=== PATIENT | female | born 2000 ===

== ENCOUNTER 2019-01-21 15:21 | Inpatient (IN) | payer OTHER ==
[~2019-01-21] VITALS: Ht 147.3 cm; Wt 55.3 kg
[2019-01-21] VITALS (32 sets, daily range): BP systolic 95–138; BP diastolic 51–91
--- NOTE | 2019-01-21 15:30 | NUR ---
Arrived to unit ambulates self with c/o SROM at 1450. Wt obtained and to room 318. Gowned and urine sample obtained. To bed and oriented to room, call light and surroundings. plan of care reviewed with pt and pts mother at bedside. monitors on.
[2019-01-21] MEDS ORDERED: PREN-37 PO (15:40)
[2019-01-21] MEDS ORDERED: FERR-84 PO (15:40)
--- NOTE | 2019-01-21 16:02 | History & Physical-OB ---
OB - Chief Complaint & HPI Date/Time Date of Admission: Date of Admission: Date seen by a Provider: Jan 21, 2019 Time Seen by a Provider: 15:35 Chief Complaint/History OB-Reason for Admission/Chief: Rupture of Membranes Hx : 1 Hx Para: 0 Expected Date of Delivery: Jan 27, 2019 Gestational Age in Weeks: 39 Gestational Age in Days: 1 Admission Nurse Assessment Rev: Yes Allergies and Home Medications Allergies Coded Allergies: No Known Drug Allergies (Unverified , 01/21/19) Home Medications Ferrous Sulfate 325 Mg Tablet, 325 MG PO DAILY, (Reported) Vit/Iron Fumarate/FA 1 Each Tablet, 1 EACH PO DAILY, (Reported) Patient Home Medication List Home Medication List Reviewed: Yes OB - History Hx of Present Care: Yes Ultrasounds: Normal mid trimester US Obstetrical Complications: None Medical Complications: None Obstetrical History Hx : 1 Patient Past Medical History n/a Social History/Family History Recent Infectious Disease Expo: No OB - Admission Exam Physical Exam Vitals: Vital Signs 01/21/19 15:45 Pulse 90 Resp 18 B/P (MAP) 120/67 (84) O2 Delivery Room Air HEENT: NCAT Heart: Rhythm Normal Lungs: Clear Abdomen: Gravid Extremities: Normal Reflexes: Normal Cervical Dilatation: 3cm Effacement: 75% Station: -1 Membranes: Ruptured Amniotic Fluid: Clear Heart Rate: 130's Accelerations: Accelerations Present Decelerations: No Decelerations Short Term Variability: Present Asbestos Coverer Variability: Average (6-25) Contractions on Admission: 6-10 Minutes Apart OB - Assessment/Plan/Diagnosis Assessment Assessment: rupture of membranes Admission Dx 18 yo @ 39 weeks SROM Admission Status: Inpatient Order (span 2 midnights) Reason for Inpatient Admission: ROM at term, active labor Plan Plan: Expectant Management HECTOR ACEVEDO DO Jan 21, 2019 16:02
[2019-01-21] MEDS: D5 LR IV SOLUTION 1,000 ML IV SCH (16:33)
[2019-01-21 16:39] LABS: HEMATOCRIT 32 % (35-52); HEMOGLOBIN 10.4 G/DL (11.5-16.0); WHITE BLOOD COUNT 11.8 10^3/uL (4.3-11.0)
[2019-01-21 16:40] LABS: BASOPHILS % (AUTO) 0 % (0-10); EOSINOPHILS % (AUTO) 0 % (0-10); LYMPHOCYTES # (AUTO) 1.8 X 10^3 (1.0-4.0); LYMPHOCYTES % (AUTO) 16 % (12-44); MEAN CORPUSCULAR HEMOGLOBIN 20 PG (25-34); MEAN CORPUSCULAR HGB CONC 33 G/DL (32-36); MEAN CORPUSCULAR VOLUME 61 FL (80-99); MONOCYTES # (AUTO) 0.7 X 10^3 (0.0-1.0); MONOCYTES % (AUTO) 6 % (0-12); NEUTROPHILS # (AUTO) 9.3 X 10^3 (1.8-7.8); NEUTROPHILS % (AUTO) 79 % (42-75); PLATELET COUNT 191 10^3/uL (130-400); RED CELL DISTRIBUTION WIDTH 16.7 % (10.0-14.5)
[2019-01-21] MEDS ORDERED: OXYTOCIN/NORMAL SALINE 500 ML IV SCH (18:21)
[2019-01-21] MEDS ORDERED: fentaNYL INJECTION 100 MCG/2 ML AMP ONE (20:06)
[2019-01-21] MEDS ORDERED: SUFENTA 0.6MCG/ML BUPIVA 0.125 100 ML ONE (20:08)
--- NOTE | 2019-01-21 20:32 | NUR ---
Shelbi Thomas, TABLET MACHINE OPERATOR and Student here for epidural placement. Procedure explained, consent reviewed and signed by anesthesia. Questions answered to patient's satisfaction. Time out taken to verify correct patient/procedure. 2031 Patient up to side of bed, assisted into sitting position. Betadine prep done x3 and sterile drape applied. Local done, see anesthesia record. Test dose given, see anesthesia record for drug and dosage. Epidural catheter secured in place. Epidural placement complete. Assisted back into bed, monitors adjusted. Epidural dosed, see anesthesia record. Epidural of Sufenta/Bupvicaine @ cc/hr stated per pump. Patient tolerated procedure well. Addendum: 01/22/19 at 0426 by BOAZ LUND RN 12cc/hr
[2019-01-21] MEDS: EPIDURAL (SUFENTA 0.6MCG/ML BUPIVA 0.125%) 100 ML BAG EPI PRN (21:00)
[2019-01-21] MEDS ORDERED: LACTATED RINGERS 1,000 ML IV ONE (21:07)
[2019-01-21] MEDS ORDERED: ONDANSETRON 4 MG/2 ML (SDV) Z0FRAN IV PRN (21:15)
[2019-01-21] MEDS ORDERED: diphenhydrAMINE 50 MG/ML INJ (BENADRYL) IV PRN (21:15)
[2019-01-21] MEDS ORDERED: NALOXONE 0.4 MG/ML 1 ML (NARCAN) VIAL IV PRN ×2 (21:15)
[2019-01-21] MEDS ORDERED: METOCLOPRAMIDE INJ 10 MG/2 ML (REGLAN) IV PRN (21:15)
[2019-01-22] VITALS (37 sets, daily range): BP systolic 91–208; BP diastolic 48–81
[2019-01-22] MEDS: D5 LR IV SOLUTION 1,000 ML IV SCH (00:54)
[2019-01-22] MEDS: CATHETER FLUSH 10 ML SYR IV SCH ×2 (00:57→06:00)
[2019-01-22] MEDS ORDERED: LIDOCAINE/EPI 2% 1:200,00 (XYLOCAINE) 10 ML VIAL ONE ×2 (04:08→05:25)
[2019-01-22] MEDS: EPIDURAL (SUFENTA 0.6MCG/ML BUPIVA 0.125%) 100 ML BAG EPI PRN (04:55)
[2019-01-22] MEDS ORDERED: OXYTOCIN/NORMAL SALINE 500 ML IV SCH (06:18)
[2019-01-22] MEDS ORDERED: MEASLES,MUMPS,RUBELLA 1 EA INJ SQ ONE (06:30)
[2019-01-22] MEDS ORDERED: TETANUS,DIPTH,PERTUSS P/F (BOOSTRIX) 0.5 ML VIAL IM ONE (06:30)
[2019-01-22] MEDS ORDERED: BENZOCAINE/MENTHOL (DERMOPLAST) 56 ML CAN TP PRN (06:30)
[2019-01-22] MEDS ORDERED: DIBUCAINE (NUPERCAINAL) 1% OINT 30 GM TOP PRN (06:30)
[2019-01-22] MEDS ORDERED: WITCH HAZEL(TUCKS) 40 EA JAR TOP PRN (06:30)
--- NOTE | 2019-01-22 07:00 | OB Labor & Delivery Record ---
L&D History Date of Service Date of Service: Jan 22, 2019 History Expected Date of Delivery: Jan 27, 2019 Gestational Age in Weeks: 39 Hx : 1 Hx Para: 0 Complications Events: Routine care Operative Indications (Cesarea: N/A-Vaginal Delivery Intrapartal Events: None Other Complications Prolonged tachycardia and 1x maternal temp 100.4F L&D Stage1 Stage One Onset of Labor - Date: Jan 22, 2019 Monitors and Tracing Monitor Mode: External Heart Rate: 165 Monitor Accelerations: Uniform Station: -1 Crab Picker Variability: Average (6-10) Short Term Variability: Present Presentation: Vertex Vital Signs VS - Last 72 Hours, by Label 01/21/19 01/21/19 01/21/19 01/21/19 15:40 15:45 17:05 18:05 Pulse 90 90 77 75 Resp 16 18 16 16 B/P (MAP) 120/60 (80) 120/67 (84) 120/63 (82) 111/57 (75) O2 Delivery Room Air Room Air Room Air Room Air 01/21/19 01/21/19 01/21/19 01/21/19 18:30 18:45 19:00 19:20 Pulse 71 80 68 Resp 16 16 18 B/P (MAP) 111/64 (80) 110/56 (74) 118/66 (83) O2 Delivery Room Air Room Air Room Air Room Air 01/21/19 01/21/19 01/21/19 01/21/19 19:30 19:55 20:05 20:20 Temp 98.0 Pulse 68 75 81 86 Resp 18 18 18 18 B/P (MAP) 115/57 (76) 112/70 (84) 135/66 (89) 125/67 (86) O2 Delivery Room Air Room Air Room Air Room Air 01/21/19 01/21/19 01/21/19 01/21/19 20:35 20:40 20:45 20:55 Pulse 106 115 107 84 Resp 18 18 18 18 B/P (MAP) 130/74 (92) 134/81 (98) 127/84 (98) 118/65 (82) Pulse Ox 96 100 94 94 O2 Delivery Room Air Room Air Room Air Room Air 8/28/19 8/28/19 8/28/19 8/28/19 21:05 21:08 21:10 21:13 Pulse 77 76 71 78 Resp 16 16 16 16 B/P (MAP) 111/53 (72) 107/55 (72) 103/57 (72) 107/60 (76) Pulse Ox 99 99 98 98 O2 Delivery Room Air Room Air Room Air Room Air 01/21/19 01/21/19 01/21/19 01/21/19 21:16 21:19 21:22 21:27 Temp 97.8 Pulse 67 74 74 76 Resp 16 16 16 16 B/P (MAP) 96/51 (66) 101/51 (68) 95/54 (68) 103/56 (72) Pulse Ox 98 98 98 98 O2 Delivery Room Air Room Air Room Air Room Air 01/21/19 01/21/19 01/21/19 01/21/19 21:30 21:40 21:45 22:00 Pulse 76 70 72 62 Resp 16 16 16 16 B/P (MAP) 104/57 (73) 101/53 (69) 104/52 (69) 107/51 (69) Pulse Ox 98 98 99 99 O2 Delivery Room Air Room Air Room Air Room Air 01/21/19 01/21/19 01/21/19 01/21/19 22:15 22:30 23:15 23:30 Temp 97.2 Pulse 68 61 77 79 Resp 16 16 16 16 B/P (MAP) 113/56 (75) 102/56 (71) 107/53 (71) 118/56 (76) Pulse Ox 99 99 100 99 O2 Delivery Room Air Room Air Room Air Room Air 01/21/19 01/22/19 01/22/19 01/22/19 23:45 00:15 00:30 00:45 Temp 98.0 Pulse 83 92 87 84 Resp 16 16 16 16 B/P (MAP) 138/91 (107) 114/59 (77) 115/70 (85) 112/55 (74) Pulse Ox 100 99 99 98 O2 Delivery Room Air Room Air Room Air Room Air 01/22/19 01/22/19 01/22/19 01/22/19 01:00 01:15 01:30 01:45 Pulse 77 82 88 81 Resp 16 16 16 16 B/P (MAP) 104/54 (71) 100/53 (69) 100/56 (71) 102/54 (70) Pulse Ox 97 97 97 96 O2 Delivery Room Air Room Air Room Air Room Air 01/22/19 01/22/19 01/22/19 01/22/19 02:00 02:15 02:30 02:45 Temp 99.6 Pulse 84 116 91 88 Resp 16 16 16 16 B/P (MAP) 98/53 (68) 99/53 (68) 98/53 (68) 101/56 (71) Pulse Ox 95 100 97 98 O2 Delivery Room Air Room Air Room Air Room Air 01/22/19 01/22/19 01/22/19 01/22/19 03:00 03:15 03:30 03:45 Temp 98.0 Pulse 103 128 143 117 Resp 16 16 16 16 B/P (MAP) 94/50 (65) 116/69 (85) 156/72 (100) 119/77 (91) Pulse Ox 98 98 98 100 O2 Delivery Room Air Room Air Room Air Room Air 01/22/19 01/22/19 04:15 04:30 Temp 98.7 Pulse 109 122 Resp 16 16 B/P (MAP) 123/58 (79) 130/60 (83) Pulse Ox 100 100 O2 Delivery Room Air Room Air Rupture of Membranes Spontaneous Ruture of Membrane: Yes Amniotic Membrane Rupture Time: 1430 Amniotic Membrane Fluid Desc.: Clear Vaginal Bleeding Description: Normal Show Induction/Anesthesia Epidural Cath Placement - Time: 2048 Progress/Notes Pitocin augmentation (max dose of 8mu) used after patient arrived with SROM. She became regular with her contraction pattern and more uncomfortable and received an epidural. She progressed to complete and +2 station. L&D Stage2 Stage Two Stage II Date: Jan 22, 2019 Monitors and Tracing Monitor Mode: External Heart Rate: 200 Monitor Decelerations: Variable Crab Picker Variability: Minimal (3-5) Short Term Variability: Present Position: Right Occiput Anterior Presentation: Vertex Signs of Distress by FHT Signs of Distress Prolonged tachycardia noted, and minimal progression with maternal pus koki. Due to ineffective pushing and concerns with underlying distress operative vaginal delivery recommended. Kiwi vacuum cup placed at the flexion point on head, suction applied and with gentle downward traction and then upward extension the head was delivered over a RML episiotomy. Nuchal cord reduced x1. Anterior then posterior shoulders delivered and infant brought out on to maternal abdomen. Cord Descript/Complications Cord Vessel Description: 3 Vessels Delivery Type Delivery Method: Low Vacuum Extraction Anterior Shoulder: Right Episiotomy/Perineal Laceration Episiotomy Description: Right Mediolateral Degree (describe repair) RML repaired in usual fashion using 3-0 and 2-0 vicryl suture Condition of Delivery 1 minute Comment: 9 5 minute Comment: 9 Notes Live female infant wegith 6lbs 14 oz Condition of Condition of : Living Exam: No Observed Abnormalities Resuscitation Resuscitation: N/A - Spontaneous Resp L&D Stage3 Stage Three Stage III Date: Jan 22, 2019 Pictocin Pitocin Administration mu/min: 8 Pitocin ml/hr: 8 Pitocin Administration Comment: Wide open x 2 bags after delivery of placenta Placenta Delivery Placenta Delivery: Spontaneous Delivery Summary Summary Estimated blood loss (mL): 350 Attending at delivery: Hector Acevedo DO Condition of Delivery Examined: Cervix Examined, Uterus Explored Post Hemorrhage: No Condition of Mother stable Condition of Infant (s) stable HECTOR ACEVEDO DO Jan 22, 2019 7:00 am
--- NOTE | 2019-01-22 07:51 | Anesthesia-Regional Post-Op ---
Regional Patient Condition Mental Status: Alert, Oriented x3 Circulation: Same as Pre-Op Headache: Absent Sensation: Full Recovery Motor Block: Absent Post Op Complications Complications None Follow Up Care/Instructions Patient Instructions None needed. Anesthesia/Patient Condition Patient is doing well, no complaints, stable vital signs, no apparent adverse anesthesia problems. No complications reported per nursing. PK HUGO CRNA Jan 22, 2019 07:50
[2019-01-22] MEDS ORDERED: IBUPROFEN 600 MG (MOTRIN) TAB PO ONE (08:28)
[2019-01-22] MEDS: DOCUSATE SODIUM 100 MG (COLACE) CAP PO SCH (09:20)
[2019-01-22] MEDS: FERROUS SULF 325 MG (IRON) TAB PO SCH (09:20)
[2019-01-22] MEDS: IBUPROFEN 600 MG (MOTRIN) TAB PO SCH ×3 (09:20→20:50)
[2019-01-22] MEDS: PRENATAL VITAMIN 1 EA TAB PO SCH (09:20)
--- NOTE | 2019-01-22 09:20 | NUR ---
FF1/u. lt rubra noted, no clots expressed. efraín-care offered. scheduled medications given, see eMar for further. pt transferred to room 309 via bed via w/c.
--- NOTE | 2019-01-22 09:35 | NUR ---
up to BR with standby assist x2. +void. efraín-care instructions given, returned demonstration. assisted back to bed.
[2019-01-22] MEDS ORDERED: CATHETER FLUSH 10 ML SYR IV SCH (14:00)
[2019-01-22] MEDS: HYDROcodone/APAP 5 MG/325 MG (LORTAB) TAB PO PRN (14:57)
--- NOTE | 2019-01-22 16:47 | NUR ---
report given to DORA Matamoros.
[2019-01-23 00:12] VITALS: BP 100/60
[2019-01-23] MEDS: DOCUSATE SODIUM 100 MG (COLACE) CAP PO SCH ×2 (00:12→11:33)
[2019-01-23 03:04] VITALS: BP 119/56
[2019-01-23 06:37] LABS: BASOPHILS % (AUTO) 0 % (0-10); EOSINOPHILS # (AUTO) 0.1 10^3/uL (0.0-0.3); EOSINOPHILS % (AUTO) 1 % (0-10); HEMATOCRIT 22 % (35-52); LYMPHOCYTES # (AUTO) 3.8 X 10^3 (1.0-4.0); LYMPHOCYTES % (AUTO) 19 % (12-44); MEAN CORPUSCULAR HEMOGLOBIN 21 PG (25-34); MEAN CORPUSCULAR HGB CONC 33 G/DL (32-36); MEAN CORPUSCULAR VOLUME 63 FL (80-99); MONOCYTES # (AUTO) 1.1 X 10^3 (0.0-1.0); MONOCYTES % (AUTO) 6 % (0-12); NEUTROPHILS # (AUTO) 14.6 X 10^3 (1.8-7.8); NEUTROPHILS % (AUTO) 74 % (42-75); PLATELET COUNT 146 10^3/uL (130-400); RED CELL DISTRIBUTION WIDTH 15.7 % (10.0-14.5); WHITE BLOOD COUNT 19.7 10^3/uL (4.3-11.0)
--- NOTE | 2019-01-23 08:17 | Postpartum Progress Note ---
Note Note Day # 1 Subjective: Patient is without complaints. Ambulating, voiding. Tolerating a regular diet without nausea or vomiting. Normal lochia. Pain is well controlled with oral pain medications. [] feeding. [] Objective: Physical Exam: General - Alert and oriented, no apparent distress Abdomen - Soft, appropriately tender to palpation, non-distended, fundus firm at umbilicus Extremities - no edema, negative Stacy's bilaterally Assessment: PPD 1 VAVD Acute blood loss anemia Plan: Routine care. Encourage breast feeding. Encourage ambulation. Ferrous sulfate supplementation. Plan for discharge today pending she remains asymptomatic, may consider blood transfusion if not. Vitals - Labs Vital Signs - I&O Vital Signs Date Time Temp Pulse Resp B/P (MAP) Pulse Ox O2 Delivery O2 Flow Rate FiO2 01/23/19 03:04 98.3 83 17 119/56 (77) 98 Room Air 01/23/19 00:12 98.3 99 17 100/60 (73) 97 Room Air 01/22/19 19:32 98.7 89 17 99/54 (69) 97 Room Air 01/22/19 15:57 98.1 87 17 208/57 (107) 99 Room Air 01/22/19 12:00 98.3 92 17 112/54 (73) 97 Room Air 01/22/19 09:00 97.8 110 16 98/56 (70) Room Air 01/22/19 08:45 105 16 97/52 (67) Room Air 01/22/19 08:30 111 16 97/53 (68) Room Air Labs Laboratory Tests 01/23/19 06:30: White Blood Count 19.7H, Red Blood Count 3.39L, Hemoglobin 7.0L, Hematocrit 22L, Mean Corpuscular Volume 63L, Mean Corpuscular Hemoglobin 21L, Mean Corpuscular Hemoglobin Concent 33, Red Cell Distribution Width 15.7H, Platelet Count 146, Mean Platelet Volume , Neutrophils (%) (Auto) 74, Lymphocytes (%) (Auto) 19, Monocytes (%) (Auto) 6, Eosinophils (%) (Auto) 1, Basophils (%) (Auto) 0, Neutrophils # (Auto) 14.6H, Lymphocytes # (Auto) 3.8, Monocytes # (Auto) 1.1H, Eosinophils # (Auto) 0.1, Basophils # (Auto) 0.0 FENECH,HECTOR S DO Jan 23, 2019 08:17
--- NOTE | 2019-01-23 08:21 | Discharge Inst-Women's Service ---
Discharge Inst-Women's Serv Depart Medication/Instructions New, Converted or Re-Newed RX: RX on Chart Final Diagnosis PPD 1 VAVD Problems Reviewed?: Yes Consults/Follow Up Additional Follow Up: Yes Orders/Referrals Dr. Acevedo in 6 weeks Activity Activity: Activity as Tolerated Driving Instructions: No Driving for 1 Week NO SMOKING: NO SMOKING Nothing Inside Vagina: No Douching, No Triplett, No Tampons Diet Discharge Diet: No Restrictions Symptoms to Report to : Bleeding Excessive, Pain Increased, Fever Over 101 Degrees F, Vaginal Bleeding Increase, Questions/Concerns For Any Problems or Questions: Contact Your Physician HECTOR ACEVEDO DO Jan 23, 2019 8:21 am
[2019-01-23] MEDS ORDERED: ACHD5005 PO (08:22)
[2019-01-23] MEDS ORDERED: FERR325T18 PO (08:22)
[2019-01-23] MEDS ORDERED: DOCU100C37 PO (08:22)
[2019-01-23] MEDS ORDERED: IBUP-844 PO (08:22)
[2019-01-23] MEDS ORDERED: Benzocaine/Menthol TP (08:23)
[2019-01-23] MEDS ORDERED: DIBU30OI TOP (08:23)
--- NOTE | 2019-01-23 09:00 | NUR ---
DR ACEVEDO HERE ASSESSING PATIENT. NO NEW ORDERS AT THIS TIME.
[2019-01-23 09:50] VITALS: BP 96/48
[2019-01-23] MEDS: FERROUS SULF 325 MG (IRON) TAB PO SCH (11:29)
[2019-01-23] MEDS: PRENATAL VITAMIN 1 EA TAB PO SCH (11:30)
[2019-01-23] MEDS: HYDROcodone/APAP 5 MG/325 MG (LORTAB) TAB PO PRN (11:31)
[2019-01-23] MEDS: IBUPROFEN 600 MG (MOTRIN) TAB PO SCH (11:32)
[2019-01-23 15:15] VITALS: BP 121/83
--- NOTE | 2019-01-23 16:00 | NUR ---
DR ACEVEDO NOTIFIED OF RECENT VITALS. ASYMPTOMATIC TODAY OF LOW HEMIGLOBIN. NEW ORDERS RECEIVED.
--- NOTE | 2019-01-23 18:00 | NUR ---
LETICIA JEFFRIES demonstrates understanding of discharge instructions and accurately returns instructions upon questioning. Copy of Post-Discharge Instructions and Medication Discharge Instructions given to PATIENT. LETICIA JEFFRIES is able to manage continuing needs after discharge. Patients belongings returned to PATIENT. Skin dry and intact; no breakdown noted. Patient discharged from 3309 on 01-23-19 at 1800. LETICIA JEFFRIES left floor via AMBULATION, accompanied by STAFF AND FAMILY.
== END 2019-01-23 18:00 | disposition home or self-care (01) | DRG 806 ==
LOC: LDRP 15:21 → WSo 15:21 → LDRP 15:50
PROVIDERS: ADMIT Obstetrics & Gynecology; ATTEND Obstetrics & Gynecology
PROC: 10D07Z6 Extraction of Products of Conception, Vacuum, Via Natural or Artificial Opening (ICD-10-PCS; principal; 2019-01-22)
PROC: 0W8NXZZ Division of Female Perineum, External Approach (ICD-10-PCS; 2019-01-22)
DX: O76 Abnormality in fetal heart rate and rhythm complicating labor and delivery (principal); O75.2 Pyrexia during labor, not elsewhere classified; O69.81X0 Labor and delivery complicated by cord around neck, without compression, not applicable or unspecified; O90.81 Anemia of the puerperium; D62 Acute posthemorrhagic anemia; Z3A.39 39 weeks gestation of pregnancy; Z37.0 Single live birth
CPT/HCPCS: 36415; 85025; 86850; 86900; 86901; 88307; 99212

== ENCOUNTER 2020-10-17 00:25 | Emergency (ER) | payer SELFPAY ==
[~2020-10-17] VITALS: Ht 149.8 cm; Wt 56.0 kg
[~2020-10-17 00:25] MED LIST: ACHD5005 PO; Benzocaine/Menthol TP; DIBU30OI TOP; DOCU100C37 PO; FERR-84 PO; FERR325T18 PO; IBUP-844 PO; PREN-37 PO
[2020-10-17 01:00] LABS: BILIRUBIN,URINE NEGATIVE (NEGATIVE); CLARITY,URINE CLEAR; COLOR,URINE YELLOW; GLUCOSE, URINE (UA) NEGATIVE (NEGATIVE); KETONES,URINE NEGATIVE (NEGATIVE); LEUKOCYTE ESTERASE ,URINE NEGATIVE (NEGATIVE); NITRITE,URINE NEGATIVE (NEGATIVE); PROTEIN,URINE NEGATIVE (NEGATIVE)
--- NOTE | 2020-10-17 01:08 | ED GU-Female ---
General Chief Complaint: Female Reproductive Stated Complaint: IRREGULAR VAGINAL BLEEDING Source: patient Allergies and Home Medications Allergies Coded Allergies: No Known Drug Allergies (Unverified , 01/21/19) Home Medications Dibucaine 30 Gm Oint, 0 GM TOP UD PRN for PAIN- SEE INSTRUCTIONS Prescribed by: HECTOR ACEVEDO on 01/23/19822 Docusate Sodium 100 Mg Capsule, 100 MG PO BID PRN for CONSTIPATION-1ST LINE Prescribed by: HECTOR ACEVEDO on 01/23/19821 Ferrous Sulfate 325 Mg Tablet, 325 MG PO BID Prescribed by: HECTOR ACEVEDO on 01/23/19821 Hydrocodone Bit/Acetaminophen 1 Tab Tab, 1 TAB PO Q4H PRN for PAIN-MODERATE Prescribed by: HECTOR ACEVEDO on 01/23/19821 Ibuprofen 600 Mg Tablet, 600 MG PO Q6HR Prescribed by: HECTOR ACEVEDO on 01/23/19821 Vit/Iron Fumarate/FA 1 Each Tablet, 1 EACH PO DAILY, (Reported) [Benzocaine/Menthol] 56 ML AEROSOL, 56 ML TP UD PRN for PAIN- SEE INSTRUCTIONS EXTERNAL USE ONLY Prescribed by: HECTOR ACEVEDO on 01/23/19822 Past Vturajg-Vftpqq-Iozluk Hx Patient Social History Recent Hopitalizations: No Immunizations Up To Date PED Vaccines UTD: Yes Seasonal Allergies Seasonal Allergies: No Past Medical History Surgeries: No Respiratory: No Cardiac: No Neurological: No Genitourinary: No Gastrointestinal: No Musculoskeletal: No Endocrine: Yes HEENT: No Cancer: No Integumentary: No Blood Disorders: No Adverse Reaction/Blood Tranf: No Family Medical History Heart murmur 19 FATHER Ovarian cyst 19 MOTHER Physical Exam Vital Signs Capillary Refill : Height, Weight, BMI Height: 4'10.00" Weight: 122lbs. 0.0oz. 55.993810kd; 25.5 BMI Method: Progress/Results/Core Measures Suspected Sepsis SIRS Temperature: Pulse: Respiratory Rate: Blood Pressure / Mean: Results/Orders Lab Results Laboratory Tests Test 10/17/20 00:47 10/17/20 01:05 Range/Units Urine Color YELLOW Urine Clarity CLEAR Urine pH 7.0 5-9 Urine Specific Rickreall 1.020 1.016-1.022 Urine Protein NEGATIVE NEGATIVE Urine Glucose (UA) NEGATIVE NEGATIVE Urine Ketones NEGATIVE NEGATIVE Urine Nitrite NEGATIVE NEGATIVE Urine Bilirubin NEGATIVE NEGATIVE Urine Urobilinogen 1.0 < = 1.0 MG/DL Urine Leukocyte Esterase NEGATIVE NEGATIVE Urine RBC (Auto) 3+ H NEGATIVE Urine RBC TNTC H /HPF Urine WBC NONE /HPF Urine Squamous Epithelial Cells 0-2 /HPF Urine Crystals NONE /LPF Urine Bacteria NEGATIVE /HPF Urine Casts NONE /LPF Urine Mucus NEGATIVE /LPF Urine Culture Indicated NO Urine Test NEGATIVE NEGATIVE My Orders Orders - VINNY ROONEY DO Hcg,Qualitative Urine (10/17/20 00:52) Ua Culture If Indicated (10/17/20 00:52) Neisseria Gonorrhea Swab (10/17/20 00:52) Chlam Dna Probe (10/17/20 00:52) Genital Culture (10/17/20 00:52) Wet Prep (10/17/20 00:52) Steven Prep (10/17/20 00:52) Ceftriaxone For Im Use (Rocephin For Im (10/17/20 01:15) Lidocaine 1% Inj 20 Ml (Xylocaine 1% Inj (10/17/20 01:15) Azithromycin Tablet (Zithromax Tablet) (10/17/20 01:15) Vital Signs/I&O Capillary Refill : Departure Impression Primary Impression: IRREGULAR VAGINAL BLEEDING Additional Impression: PID (acute pelvic inflammatory disease) Disposition: HOME, SELF-CARE Condition: Stable Departure-Patient Inst. Decision time for Depature: 01:15 Referrals: [facility] Patient Instructions: IRREGULAR VAGINAL BLEEDING, Pelvic Inflammatory Disease (DC) Add. Discharge Instructions: NO INTERCOURSE UNTIL YOU ARE RECHECKED AND CLEARED BY TYLENOL AND MOTRIN NEEDED FOR PAIN FOLLOW UP WITH [facility] IN 3-4 DAYS FOR FURTHER CARE All discharge instructions reviewed with patient and/or family. Voiced understanding. VINNY ROONEY DO October 17, 2020 01:08
[2020-10-17 01:10] LABS: BACTERIA,URINE NEGATIVE /HPF; RBC,URINE TNTC /HPF; SQUAMOUS EPITHELIAL CELL,UR 0-2 /HPF
[2020-10-17] MEDS ORDERED: AZITHROMYCIN 250 MG TAB (ZITHROMAX) PO ONE (01:15)
[2020-10-17] MEDS ORDERED: LIDOCAINE 1% INJ 20 ML 20 ML VIAL INJ ONE (01:15)
[2020-10-17] MEDS ORDERED: cefTRIAXone 1,000 MG/2.86 ml vial (IM ONLY) IM SCH (01:15)
[2020-10-17 01:36] VITALS: BP 115/75
== END 2020-10-17 01:38 | disposition home or self-care (01) ==
LOC: EDUNIT# 00:25 → ER 00:27
DX: N73.9 Female pelvic inflammatory disease, unspecified (principal)
CPT/HCPCS: 81000; 84703; 87070; 87205; 87210; 87491; 87591; 99284